=== PATIENT | male | born 1965 | race American Indian/Alaskan Native ===

== ENCOUNTER 2019-04-24 01:22 | Emergency (ER) | payer SELFPAY ==
[~2019-04-24 01:22] MED LIST: ACETAMINOPHEN 500 MG TAB PO ONE
[2019-04-24] MEDS ORDERED: SODIUM CHLORIDE 0.9% 1000 ML 1,000 ML IV ONE ×2 (01:28→02:32)
[2019-04-24] MEDS ORDERED: ONDANSETRON 4 MG/2 ML INJ IV ONE (01:28)
--- NOTE | 2019-04-24 01:39 | XRay Report ---
CHEST 1 VIEW 04/24/2019 1:10 AM INDICATION / CLINICAL INFORMATION: Weakness. Syncope with collapse. COMPARISON: None available. FINDINGS: SUPPORT DEVICES: There is a left subclavian vein Port-A-Cath terminates over the distal SVC. HEART / MEDIASTINUM: No significant abnormality. LUNGS / PLEURA: No significant pulmonary or pleural abnormality. No pneumothorax. ADDITIONAL FINDINGS: No significant additional findings. IMPRESSION: 1. No acute abnormality of the chest. Signer Name: Pritesh Rosales MD Signed: 04/24/2019 1:35 AM Workstation Name: [id number]
--- NOTE | 2019-04-24 02:07 | Emergency Department Report ---
ED Syncope HPI - General Stated Complaint: SYNCOPE Time Seen by Provider: 04/24/19 01:27 Source: patient, EMS Exam Limitations: no limitations - History of Present Illness Initial Comments: Mr. Walton is a very pleasant 54-year-old male with recent diagnosis of gastric cancer who presents with fall versus syncope at home. He recalled developing severe nausea. He was looking for his antinausea tablets when his girlfriend stated that he just fell to the floor. He recalls her trying to wake him up. He did feel weak prior to falling to the ground. He has mild headache. He was too weak to get up on his own power. Systolic blood pressure was 80 mmHg according to EMS. He was given IV fluid normal saline in route. His first chemotherapy session occurred 8 days ago. His next chemotherapy session will resume May 03. He is followed at [facility]. He has had poor appetite. He recently recovered from cold symptoms. Since his diagnosis he has lost 30+ pounds. Timing/Prior Episodes: no prior history Precipitating Factors: Positive: lightheadedness, nausea Context: other (initially sitting then stood up to look for nausea medicine) Loss of Consciousness: brief (seconds) Current Symptoms: lightheadedness, nausea - Related Data Allergies/Adverse Reactions: Allergies No Known Allergies Allergy (Unverified 04/24/19 02:06) ED Review of Systems ROS: Stated complaint: SYNCOPE Other details as noted in HPI Comment: All other systems reviewed and negative Constitutional: malaise. denies: chills, fever ENT: congestion Respiratory: cough Cardiovascular: denies: chest pain, palpitations Gastrointestinal: nausea. denies: abdominal pain, vomiting Neurological: headache ED Past Medical Hx - Past Medical History Previous Medical History?: Yes Additional medical history: Gastric cancer - Family History Family history: hypertension - Social History Smoking Status: Current Every Day Smoker Substance Use Type: Alcohol ED Physical Exam - General General appearance: alert, in no apparent distress, cachectic - Head Head exam: Present: atraumatic, normocephalic - Eye Eye exam: Present: normal appearance. Absent: scleral icterus, conjunctival injection - ENT ENT exam: Present: mucous membranes dry, other (no oropharyngeal lesions) - Neck Neck exam: Present: normal inspection, full ROM. Absent: tenderness, meningismus - Respiratory Respiratory exam: Present: normal lung sounds bilaterally. Absent: respiratory distress, wheezes, rales, rhonchi, chest wall tenderness, accessory muscle use, decreased breath sounds, prolonged expiratory - Cardiovascular Cardiovascular Exam: Present: regular rate, normal rhythm, normal heart sounds. Absent: systolic murmur, diastolic murmur, rubs, gallop - GI/Abdominal GI/Abdominal exam: Present: soft, normal bowel sounds. Absent: distended, tenderness, guarding, rebound - Rectal Rectal exam: Present: deferred - Extremities Exam Extremities exam: Present: normal inspection - Back Exam Back exam: Present: normal inspection - Neurological Exam Neurological exam: Present: alert, oriented X3 - Psychiatric Psychiatric exam: Present: normal affect, normal mood - Skin Skin exam: Present: warm, dry, intact, normal color. Absent: rash ED Course Vital Signs 04/24/19 04/24/19 04/24/19 02:02 02:07 02:30 Temperature 98.2 F 98.3 F Pulse Rate 78 80 Respiratory 13 16 18 Rate Blood Pressure 100/61 86/62 [Right] O2 Sat by Pulse 98 97 Oximetry ED Medical Decision Making - Lab Data Result diagrams: 04/24/19 01:54 04/24/19 01:54 - EKG Data 04/24/19 02:05 EKG obtained 0154 Normal sinus rhythm rate 75 beats a minute normal axis normal intervals no ST-T signs of ischemia no evidence of heart strain no evidence of pericarditis - Radiology Data Radiology results: report reviewed cxr: NAP portacath - Medical Decision Making Mr. Walton presents status post syncope due to orthostasis. He received 3 L IV fluid. He received IV anti emetic. Upon presentation, pulmonary embolism, sepsis, pneumonia, cardiac event ruled out with workup evaluation performed in the emergency department. I do not suspect cardiac disease nor pulmonary e mbolism from this presentation. He was ambulatory with assistance. He preferred to be discharged home. Critical care attestation.: If time is entered above; I have spent that time in minutes in the direct care of this critically ill patient, excluding procedure time. ED Disposition Clinical Impression: Dehydration, Orthostatic syncope, Gastric cancer Disposition: DC-01 TO HOME OR SELFCARE Is pt being admited?: No Does the pt Need Aspirin: No Condition: Stable Instructions: Syncope (ED), Dehydration (ED)
[2019-04-24 02:15] LABS: Basophils % (Auto) 0.6 % (0.0-1.8); Eosinophils % (Auto) 0.4 % (0.0-4.3); Hematocrit 33.2 % (35.5-45.6); Lymphocytes # (Auto) 1.1 K/mm3 (1.2-5.4); Lymphocytes % (Auto) 24.2 % (13.4-35.0); Mean Corpuscular HGB Conc 33 % (32-34); Mean Corpuscular Volume 93 fl (84-94); Monocytes # (Auto) 0.4 K/mm3 (0.0-0.8); Monocytes % (Auto) 7.7 % (0.0-7.3); Platelet Count 188 K/mm3 (140-440); Red Blood Count 3.59 M/mm3 (3.65-5.03); Red Cell Distribution Width 14.3 % (13.2-15.2)
[2019-04-24 02:25] LABS: BUN/Creatinine Ratio 23; Blood Urea Nitrogen 21 mg/dL (9-20); Hemolysis Index 18
[2019-04-24 03:59] VITALS: BP 109/71
== END 2019-04-24 04:19 | disposition home or self-care (01) ==
LOC: ED 01:22
DX: E86.0 Dehydration (principal); R55 Syncope and collapse; C16.9 Malignant neoplasm of stomach, unspecified; F17.200 Nicotine dependence, unspecified, uncomplicated; F10.10 Alcohol abuse, uncomplicated
CPT/HCPCS: 36415; 71045; 80048; 85025; 93005; 93010; 96361; 96374; 99285; J1642; J2405; J7030